=== PATIENT | female | born 1985 | race Caucasian/White ===

== ENCOUNTER 2016-06-18 07:22 | Emergency (ER) ==
[2016-06-18 07:22] VITALS: BMI 14.6
[2016-06-18 07:27] VITALS: BP 103/67; TEMP 98.2
[2016-06-18 08:00] LABS: BASOPHILS % (AUTO) 0.5 % (0.0-3.0); HEMOGLOBIN 12.8 g/dl (12.0-16.0); IMMATURE GRANULOCYTE % (AUTO) 0.5 % (0.0-5.0); LYMPHOCYTES # (AUTO) 0.4 K/uL (0.60-3.4); LYMPHOCYTES % (AUTO) 9.7 (10.0-50.0); MEAN CORPUSCULAR HGB CONC 33.7 (31.8-35.4); MEAN CORPUSCULAR VOLUME 89.2 fl (81.0-99.0); MONOCYTES # (AUTO) 0.4 K/uL (0.4-2.0); MONOCYTES % (AUTO) 10.7 (0-10); NEUTROPHILS # (AUTO) 3.2 K/ul (2.0-6.9); NEUTROPHILS % (AUTO) 77.6; PLATELET COUNT 147 10^3/uL (140-440); RED BLOOD COUNT 4.26 10^6/ul (4.20-5.40); WHITE BLOOD COUNT 4.12 K/ul (4.6-10.2)
[2016-06-18 08:07] LABS: BILIRUBIN,URINE Negative (NEGATIVE); KETONES,URINE Negative (NEGATIVE); LEUKOCYTE ESTERASE ,URINE 1+ (NEGATIVE); NITRITE,URINE Negative (NEGATIVE); PROTEIN,URINE Trace (NEGATIVE); URINE, BLOOD 2+ (NEGATIVE)
[2016-06-18 08:10] LABS: ADD URINE MICROSCOPIC YES; BACTERIA,URINE 1+ (NOT PRESENT)
[2016-06-18 08:11] LABS: URINE PREGNANCY INTERNAL QC INTERNAL QC VALID
[2016-06-18 08:20] LABS: FLU INTERNAL QC INTERNAL QC VALID; RAPID FLU A NEGATIVE (NEGATIVE); RAPID FLU B NEGATIVE (NEGATIVE)
[2016-06-18 08:21] LABS: ALBUMIN/GLOBULIN RATIO 1.67; ANION GAP 12.6; BILIRUBIN,TOTAL 0.71 mg/dL (0.00-1.20); BUN/CREATININE RATIO 10.81; CALCIUM 8.9 mg/dL (8.2-10.2); CREATININE 0.74 mg/dL (0.60-1.30); POTASSIUM 3.6 mmol/L (3.5-5.10); TOTAL PROTEIN 6.4 g/dL (6.4-8.2)
[2016-06-18] MEDS ORDERED: ROCEPHIN IM STA (08:36)
[2016-06-18] MEDS ORDERED: LIDOCAINE 1 % AMP 5 ML (SUTURES) IM STA (08:36)
--- NOTE | 2016-06-18 08:44 | DI ---
EXAM: Chest two view, frontal and lateral views. HISTORY: Cough. COMPARISON: 03/15/2015. FINDINGS: The heart size is normal. There is no pulmonary vascular congestion. The lungs are dylan r. No pleural effusion or pneumothorax is seen. No acute osseous abnormality identified. Since prior study, there has been no significant interval change. IMPRESSION: No acute cardiopulmonary process.
--- NOTE | 2016-06-18 08:47 | CT ---
EXAM: CT Abdomen without contrast. CT Pelvis without contrast. HISTORY: Generalized abdominal pain. Vomiting. COMPARISON: 05/18/2015. Ultrasound 02/03/2016. TECHNIQUE: Multiple axial images of the abdomen and pelvis were obtained without intravenous contra st. Images were reformatted in the coronal plane. FINDINGS: Please note that evaluation of the abdominal and pelvic structures is limited due to lack of intravenous contrast. The lung bases are clear. No acute osseous abnormality identified. The liver, gallbladder, pancreas, spleen, and adrenal glands demonstrate normal contour. Low densit y hepatic lesion in the right lobe on axial image 19 is stable, most likely a hemangioma based on pr ior ultrasound. No calcified renal stones, hydronephrosis or perinephric inflammation identified. The bowel is normal in course and caliber without evidence for obstruction or inflammatory process. The appendix is normal. Uterus demonstrates normal contour. Urinary bladder is not well distended . Phleboliths in the pelvis. A trace amount of free pelvic fluid noted. No free air identified. IMPRESSION: No acute abnormality within the abdomen or pelvis.
--- NOTE | 2016-06-18 09:28 | ED.PDOC ---
General ED Provider: Dr. SCOTTY CHIANG Chief Complaint: Nausea/Vomiting Stated Complaint: flu like symptoms Time Seen by Physician: 07:30 (seen with staff ) Mode of Arrival: Walk-In Information Source: Patient Exam Limitations: No limitations Nursing and Triage Documentation Reviewed and Agree: Yes Respiratory Complaint Exam - Respiratory Complaint/Exam Onset/Duration: 2 days Symptoms Are: Still present Timing: Intermittent Initial Severity: Mild Current Severity: Mild Location: Throat, Chest Character: Reports: Non-productive cough Aggravating: Reports: None Alleviating: Reports: Spontaneous resolution Associated Signs and Symptoms: Reports: Fever, Chills, URI, Nasal congestion History of Healthcare-Acquired Pneumonia: No Related Surgical History: Reports: None Pulmonary Embolism Risk Factors: None Cardiac Risk Factors: Reports: None Pseudomonas Risk Factors: Reports: None Tuberculosis Risk Factors: Reports: None Status Asthmaticus Risk Factors: Reports: None Home Oxygen Use: No Recent Stress Test: No Recent Echo/LV Function: No Current Antibiotic Use: No Current Asthma Medication Use: No Respiratory Distress: None Inadequate Respiratory Effort: No Dysphagia Present: No Stridor Present: No JVD Present: No Retractions: Not Present Diminished Breath Sounds: No Sinus Tenderness: None Grunting Respirations: No Kussmaul Respirations: No Differential Diagnoses: Pneumonia, Bronchitis, URI, Influenza, Lower Resp. Infection Review of Systems - Review Of Systems Constitutional: Reports: Chills, Fever, Malaise, Weakness Eyes: Reports: No symptoms Ears, Nose, Mouth, Throat: Reports: No symptoms Respiratory: Reports: Cough Cardiac: Reports: Chest pain GI: Reports: Abdominal pain, Nausea, Vomiting : Reports: No symptoms Musculoskeletal: Reports: No symptoms Skin: Reports: No symptoms Neurological: Reports: Headache Endocrine: Reports: No symptoms Hematologic/Lymphatic: Reports: No symptoms All Other Systems: Reviewed and Negative Past Medical History - Past Medical History Previously Healthy: Yes Endocrine: Reports: None Cardiovascular: Reports: None Respiratory: Reports: None Hematological: Reports: None Gastrointestinal: Reports: Other (ulcerative colitis) Genitourinary: Reports: None Neuro/Psych: Reports: None Musculoskeletal: Reports: None Cancer: Reports: None Last Menstrual Period: last week - Surgical History General Surgical History: Reports: Unknown - Family History Family History: Reports: Unknown - Social History Smoking Status: Former smoker Hx Substance Use: No Alcohol Screening: Occasionally Physical Exam - Physical Exam Appearance: Well-appearing, No pain distress, Well-nourished Eyes: AMANDA, EOMI, Conjunctiva clear ENT: Ears normal, Nose normal, Oropharynx normal Respiratory: Airway patent, Breath sounds clear, Breath sounds equal, Respirations nonlabored Cardiovascular: RRR, Pulses normal, No rub, No murmur GI/: Soft, Nontender, No masses, Bowel sounds normal, No Organomegaly Musculoskeletal: Normal strength, ROM intact, No edema, No calf tenderness Skin: Warm, Dry, Normal color Neurological: Sensation intact, Motor intact, Reflexes intact, Cranial nerves intact, Alert, Oriented Psychiatric: Affect appropriate, Mood appropriate Interpretation - Radiology Interpretation Radiology Interpretation By: Radiologist Radiology Results: No acute changes Re-Evaluation - Re-Evaluation Time of Re-Evaluation: 09:00 Status: Improved Vital Signs Stable: Yes Pain Level: 0 Appearance: NAD Lungs: Clear Skin: Warm and Dry Neuro: Alert and Oriented X3 CV: RRR Critical Care Note - Critical Care Note Total Time (mins): 0 Course - Course Hematology/Chemistry: 06/18/16 07:57 06/18/16 07:57 Orders, Labs, Meds: Lab Review 06/18/16 06/18/16 07:45 07:57 WBC 4.12 L RBC 4.26 Hgb 12.8 Hct 38.0 MCV 89.2 MCH 30.0 MCHC 33.7 RDW Coeff of Tj 11.8 Plt Count 147 Immature Gran % (Auto) 0.5 Neut % (Auto) 77.6 Lymph % (Auto) 9.7 L [place] % (Auto) 10.7 H Eos % (Auto) 1.0 Baso % (Auto) 0.5 Immature Gran # (Auto) 0.0 Neut # 3.2 Lymph # 0.4 L [place] # 0.4 Eos # 0.0 Baso # 0.0 Sodium 137 Potassium 3.6 Chloride 102 Carbon Dioxide 26 Anion Gap 12.6 BUN 8 Creatinine 0.74 Estimated GFR (MDRD) 90.00 BUN/Creatinine Ratio 10.81 Glucose 111 H Lactic Acid 7.4 Calcium 8.9 Total Bilirubin 0.71 AST 16 ALT 16 Alkaline Phosphatase 37 L Total Protein 6.4 Albumin 4.0 Globulin 2.4 Albumin/Globulin Ratio 1.67 Amylase 50 Lipase 15 Urine Color Yellow Urine Clarity Clear Urine pH 7.0 Ur Specific [place] 1.020 Urine Protein Trace Urine Glucose (UA) Negative Urine Ketones Negative Urine Blood 2+ Urine Nitrite Negative Urine Bilirubin Negative Urine Urobilinogen 1.0 Ur Leukocyte Esterase 1+ Urine Microscopic RBC 2-5 Urine Microscopic WBC 5-10 Ur Squamous Epith Cells 0-2 Urine Bacteria 1+ Urine Test Negative Influenza A (Rapid) Negative Influenza B (Rapid) Negative Orders Category Date Time Status AMYLASE Stat LAB 06/18/16 07:40 Ordered BLOOD CULTURE Stat LAB 06/18/16 07:44 Ordered CBC W/ AUTO DIFF Stat LAB 06/18/16 07:40 Ordered COMPREHENSIVE METABOLIC PANEL Stat LAB 06/18/16 07:40 Ordered LACTIC ACID Stat LAB 06/18/16 07:44 Ordered LIPASE Stat LAB 06/18/16 07:40 Ordered RAPID FLU A/B Stat LAB 06/18/16 07:41 Uncollected STREP SCREEN Stat LAB 06/18/16 07:41 Uncollected URINALYSIS C & S IF INDICATED Stat LAB 06/18/16 07:40 Uncollected URINE CULTURE Stat LAB 06/18/16 07:45 Received URINE Stat LAB 06/18/16 07:43 Uncollected Ceftriaxone Sodium [Rocephin] MEDS 06/18/16 08:36 Stat 1 gm IM ONCE STA Lidocaine HCl/Pf [Lidocaine 1 % Amp 5 ml (Sutures)] MEDS 06/18/16 08:36 Stat 2.1 ml IM ONCE STA CHEST, 2 VIEWS PA & LAT Stat RADS 06/18/16 07:[address] ABDOMEN/PELVIS WO CONTRAST Stat RADS 06/18/16 07:41 Ordered Medications Discontinued Medications Generic Name Dose Route Start Last Admin Trade Name Freq PRN Reason Stop Dose Admin Ceftriaxone Sodium 1 gm 06/18/16 08:36 06/18/16 08:48 Rocephin IM 06/18/16 08:37 1 gm ONCE STA Administration Lidocaine HCl 2.1 ml 06/18/16 08:36 06/18/16 08:50 Lidocaine 1 % Amp 5 Ml (Sutures) IM 06/18/16 08:37 2.1 ml ONCE STA Administration Vital Signs: Temp Pulse Resp BP Pulse Ox 06/18/16 07:23 98.2 F 93 H 20 103/67 98 Departure - Departure Time of Disposition: 09:28 Disposition: HOME SELF-CARE Discharge Problem: Nausea, Vomiting, Viral syndrome, Bronchitis, UTI (urinary tract infection) Instructions: Urinary Tract Infection in Women (ED), Viral Syndrome (ED) Condition: Good Pt referred to PMD for follow-up: No Additional Instructions: Please call your Family Physician as soon as possible to schedule a follow-up appointment. Prescriptions: Sulfamethoxazole/Trimethoprim [Bactrim Ds 800/160 mg] 1 tab PO Q12HR #10 tablet Allergies/Adverse Reactions: Allergies hydrocodone bitartrate [From Lortab] Adverse Reaction (Verified 06/18/16 07:30) Home Medications: Ambulatory Orders Sulfamethoxazole/Trimethoprim [Bactrim Ds 800/160 mg] 1 tab PO Q12HR #10 tablet 06/18/16
== END 2016-06-18 09:35 | disposition home or self-care (01) ==
LOC: ED 07:22
DX: J40 Bronchitis, not specified as acute or chronic (principal); B34.9 Viral infection, unspecified; N39.0 Urinary tract infection, site not specified; R11.2 Nausea with vomiting, unspecified
CPT/HCPCS: 36415; 80053; 81001; 81025; 82150; 83605; 83690; 85025; 87040; 87086; 87804; 96372; 99283

== ENCOUNTER 2016-11-05 09:53 | Outpatient (CLI) ==
--- NOTE | 2016-11-05 11:09 | CT ---
EXAM: CT Abdomen without contrast. CT Pelvis without contrast. HISTORY: Right lower quadrant pain. Intermittent nausea and vomiting. Liver disease. COMPARISON: 06/18/2016. TECHNIQUE: Multiple axial images of the abdomen and pelvis were obtained without intravenous contra st. Images were reformatted in the coronal plane. FINDINGS: Please note that evaluation of the abdominal and pelvic structures is limited due to lack of intravenous contrast. The lung bases are clear. No acute osseous abnormality identified. The liver, gallbladder, pancreas, spleen, adrenal glands, and kidneys are unremarkable. There is mild fluid distension of a few distal small bowel loops in the right lower quadrant/right p davy without wall thickening or adjacent inflammation. The appendix is normal. Uterus demonstrate s normal contour. Urinary bladder is unremarkable. Phleboliths noted in the pelvis. There may be a trace amount of free pelvic fluid. No free air identified IMPRESSION: Suspect mild distal enteritis.
--- NOTE | 2016-11-05 11:19 | DI ---
Exam: Right foot three-view HISTORY: Right foot pain Findings / impression: No acute bony or articular abnormality. Questionable left of segmentation of the talus and calcaneus as viewed on the lateral radiograph. A CT could be performed if this is th e site of pain. No abnormalities otherwise.
== END 2016-11-05 09:54 | disposition home or self-care (01) ==
LOC: RAD 09:53
PROVIDERS: ATTEND Nurse Practitioner Family
DX: K76.89 Other specified diseases of liver (principal); R10.9 Unspecified abdominal pain; M79.671 Pain in right foot; S99.921A Unspecified injury of right foot, initial encounter

== ENCOUNTER 2016-11-07 12:45 | Outpatient (CLI) ==
--- NOTE | 2016-11-07 13:22 | CT ---
EXAM: CT right foot without contrast HISTORY: Initial presentation for right foot trauma. Pain on the lateral aspect of the foot COMPARISON: Radiograph 11/05/2016 TECHNIQUE: Multiple axial images of the right foot were obtained without intravenous contrast. Brianda ges were reformatted in the sagittal and coronal planes FINDINGS: Bone mineralization is normal. No fracture or dislocation identified. Joint spaces are maintained. Soft tissues are unremarkable. IMPRESSION: No fracture or dislocation.
== END 2016-11-07 12:46 | disposition home or self-care (01) ==
LOC: RAD 12:45
PROVIDERS: ATTEND Nurse Practitioner Family
DX: S99.921A Unspecified injury of right foot, initial encounter (principal); M79.671 Pain in right foot

== ENCOUNTER 2016-11-27 11:07 | Emergency (ER) ==
[2016-11-27 11:20] VITALS: BP 102/65; TEMP 99.1; BMI 14.8
[2016-11-27 11:43] LABS: BILIRUBIN,URINE Negative (NEGATIVE); KETONES,URINE Negative (NEGATIVE); LEUKOCYTE ESTERASE ,URINE 1+ (NEGATIVE); NITRITE,URINE Negative (NEGATIVE); PH,URINE 7.5 (5-9); PROTEIN,URINE Negative (NEGATIVE); URINE, BLOOD Trace-intact (NEGATIVE)
[2016-11-27 11:50] LABS: ADD URINE MICROSCOPIC YES
[2016-11-27 12:03] LABS: BASOPHILS % (AUTO) 0.2 % (0.0-3.0); EOSINOPHILS # (AUTO) 0.1 K/ul (0.0-0.7); EOSINOPHILS % (AUTO) 1.9 % (0.0-7.0); HEMATOCRIT 38.5 % (37.0-47.0); HEMOGLOBIN 13.1 g/dl (12.0-16.0); IMMATURE GRANULOCYTE % (AUTO) 0.2 % (0.0-5.0); LYMPHOCYTES % (AUTO) 23.8 (10.0-50.0); MEAN CORPUSCULAR HEMOGLOBIN 30.3 pg (27.0-31.0); MEAN CORPUSCULAR VOLUME 89.1 fl (81.0-99.0); MONOCYTES # (AUTO) 0.2 K/uL (0.4-2.0); MONOCYTES % (AUTO) 5.8 (0-10); NEUTROPHILS # (AUTO) 2.8 K/ul (2.0-6.9); NEUTROPHILS % (AUTO) 68.1; PLATELET COUNT 131 10^3/uL (140-440); RED BLOOD COUNT 4.32 10^6/ul (4.20-5.40); WHITE BLOOD COUNT 4.12 K/ul (4.6-10.2)
[2016-11-27 12:17] LABS: SERUM PREGNANCY INTERNAL QC INTERNAL QC VALID
[2016-11-27 12:25] LABS: ALBUMIN/GLOBULIN RATIO 1.6; ANION GAP 13.2; BILIRUBIN,TOTAL 0.8 mg/dL (0.00-1.20); CREATININE 0.75 mg/dL (0.60-1.30); POTASSIUM 3.2 mmol/L (3.5-5.10); TOTAL PROTEIN 6.5 g/dL (6.4-8.2)
--- NOTE | 2016-11-27 12:53 | CT ---
EXAM: CT ABDOMEN AND PELVIS HISTORY: Abdominal pain. Nausea and vomiting. TECHNIQUE: CT abdomen and pelvis without intravenous contrast. Images were reconstructed using 3 m m section thickness. Reformations were prepared. COMPARISON: 11/05/2016 FINDINGS: Liver and spleen are grossly unremarkable within limits of this unenhanced exam. Gallbladder, pancr eas and adrenal glands are within normal limits. Prominent left renal pelvis similar to that previo usly seen may represent normal variant extrarenal pelvic architecture. Less likely chronic partial ureteral pelvic junction obstruction. No calculi are identified within the kidneys or the ureters. Normal abdominal aorta. No definite gastric pathology. A good portion of the appendix is identified and these portions appe ar normal. A few loops of small bowel have mild air-fluid levels and fold thickening. Colon caliber is unremarkable. Uterus and urinary bladder appear normal. There is trace pelvic ascites, possibly physiologic. No inflammatory infiltration of the abdominal fat. Ventral abdominal wall is intact without herniation. Bones appear appropriate for age. Lung bases are clear. There is no pneumoperitoneum. IMPRESSION: 1. Mild small bowel fold thickening with some of the lower small bowel having subtle air fluid leve ls. Consider ileus and / or enteritis. Visualized appendix appears normal. 2. Trace pelvic ascites, possibly physiologic. No inflammatory infiltration of the abdominal fat. 3. Prominent left renal pelvis similar to that previously seen may represent normal variant extrare nal pelvic architecture. Less likely chronic partial ureteral pelvic junction obstruction. No calc tisha are identified within the kidneys or the ureters.
--- NOTE | 2016-11-27 13:10 | ED.PDOC ---
General ED Provider: Dr. SCOTTY CHIANG Chief Complaint: Nausea/Vomiting Stated Complaint: ABDOMINAL PAIN Time Seen by Physician: 11:12 Mode of Arrival: Walk-In Information Source: Patient Exam Limitations: No limitations [facility] Nursing and Triage Documentation Reviewed and Agree: Yes GI Complaint Exam - Abdominal Pain Complaint/Exam Onset: Gradual Duration: CHRONIC VOMITEDX 1 Symptoms Are: Still present Timing: Constant Initial Severity: Mild Current Severity: Mild Location of Pain: Diffuse Character: Reports: Dull Aggravating: Reports: None Alleviating: Reports: None Associated Signs and Symptoms: Denies: Diaphoresis, Fever, Cough, Chest pain, Dizziness, Back pain, Constipation, Blood in stool, Dysuria, Urinary frequency, Decreased urine output, Decreased appetite, Vaginal bleeding, Vaginal discharge , Nausea, Vomiting, Diarrhea, Sore throat, Decreased activity Related History: Reports: Similar episode AAA Risk Factors: Reports: None Cardiac Risk Factors: Reports: None Ectopic Risk Factors: Reports: None Ovarian Torsion Risk Factors: Reports: None Surgical Obstruction Risk Factors: Reports: None Related Surgical History: Reports: None Patient Rh Status: Unknown Abdominal Findings: Present: None Differential Diagnoses: Appendicitis, Bowel Obstruction, Constipation, Diverticulitis, Gastroenteritis, Pancreatitis, UTI Review of Systems - Review Of Systems Constitutional: Reports: Malaise Eyes: Reports: No symptoms Ears, Nose, Mouth, Throat: Reports: No symptoms Respiratory: Reports: No symptoms Cardiac: Reports: No symptoms GI: Reports: Abdominal pain, Nausea, Vomiting : Reports: No symptoms Musculoskeletal: Reports: No symptoms Skin: Reports: No symptoms Neurological: Reports: No symptoms Endocrine: Reports: No symptoms Hematologic/Lymphatic: Reports: No symptoms All Other Systems: Reviewed and Negative Past Medical History - Past Medical History Previously Healthy: Yes Endocrine: Reports: None Cardiovascular: Reports: None Respiratory: Reports: None Hematological: Reports: None Gastrointestinal: Reports: Other (ulcerative colitis) Genitourinary: Reports: None Neuro/Psych: Reports: None Musculoskeletal: Reports: None Cancer: Reports: None Last Menstrual Period: nov 15 - Surgical History General Surgical History: Reports: Unknown - Family History Family History: Reports: Unknown - Social History Smoking Status: Former smoker Hx Substance Use: No Alcohol Screening: Occasionally Physical Exam - Physical Exam Appearance: Well-appearing, No pain distress, Well-nourished Eyes: AMANDA, EOMI, Conjunctiva clear ENT: Ears normal, Nose normal, Oropharynx normal Respiratory: Airway patent, Breath sounds clear, Breath sounds equal, Respirations nonlabored Cardiovascular: RRR, Pulses normal, No rub, No murmur GI/: Soft, Nontender, No masses, Bowel sounds normal, No Organomegaly Musculoskeletal: Normal strength, ROM intact, No edema, No calf tenderness Skin: Warm, Dry, Normal color Neurological: Sensation intact, Motor intact, Reflexes intact, Cranial nerves intact, Alert, Oriented Psychiatric: Affect appropriate, Mood appropriate Interpretation - Radiology Interpretation Radiology Interpretation By: Radiologist Radiology Results: No acute changes Physician Notification - Case Discussed Physician Notified: EMILY NERI Time of Notification: 12:17 (MAY GO HOME IF CMP WNL) Critical Care Note - Critical Care Note Total Time (mins): 0 Course - Course Hematology/Chemistry: 11/27/16 11:58 11/27/16 11:58 Orders, Labs, Meds: Lab Review 11/27/16 11/27/16 11:35 11:58 WBC 4.12 L RBC 4.32 Hgb 13.1 Hct 38.5 MCV 89.1 MCH 30.3 MCHC 34.0 RDW Coeff of Tj 11.9 Plt Count 131 L Immature Gran % (Auto) 0.2 Neut % (Auto) 68.1 Lymph % (Auto) 23.8 [place] % (Auto) 5.8 Eos % (Auto) 1.9 Baso % (Auto) 0.2 Immature Gran # (Auto) 0.0 Neut # 2.8 Lymph # 1.0 [place] # 0.2 L Eos # 0.1 Baso # 0.0 Sodium 142 Potassium 3.2 L Chloride 103 Carbon Dioxide 29 Anion Gap 13.2 BUN 6 L Creatinine 0.75 Estimated GFR (MDRD) 89.00 BUN/Creatinine Ratio 8.00 Glucose 100 Calcium 9.0 Total Bilirubin 0.80 AST 14 L ALT 11 L Alkaline Phosphatase 31 L Total Protein 6.5 Albumin 4.0 Globulin 2.5 Albumin/Globulin Ratio 1.60 Amylase 62 Lipase 15 Serum , Qual Negative Urine Color Yellow Urine Clarity Clear Urine pH 7.5 Ur Specific [place] 1.020 Urine Protein Negative Urine Glucose (UA) Negative Urine Ketones Negative Urine Blood Trace-intact Urine Nitrite Negative Urine Bilirubin Negative Urine Urobilinogen 0.2 Ur Leukocyte Esterase 1+ Urine Microscopic RBC 5-10 Urine Microscopic WBC 2-5 Ur Squamous Epith Cells 10-20 Orders Category Date Time Status AMYLASE Stat LAB 11/27/16 11:58 Completed CBC W/ AUTO DIFF Stat LAB 11/27/16 11:58 Completed COMPREHENSIVE METABOLIC PANEL Stat LAB 11/27/16 11:58 Completed LIPASE Stat LAB 11/27/16 11:58 Completed SERUM Stat LAB 11/27/16 11:58 Completed URINALYSIS C & S IF INDICATED Stat LAB 11/27/16 11:[address] ABDOMEN/PELVIS WO CONTRAST Stat RADS 11/27/16 11:30 Completed Vital Signs: Temp Pulse Resp BP Pulse Ox 11/27/16 11:07 99.1 F 66 20 102/65 98 Departure - Departure Time of Disposition: 13:10 (SEEN AT D/C WITH ALONZO FROM LAB . CT REPORT AND MILD HYPOKALEMIA DISCUSSED. PMD ASLO SAW PT IN THE ED STATED IF CHEMISTRY IS WNL PT MAY GO HOME ) Disposition: HOME SELF-CARE Discharge Problem: Nausea, Vomiting Abdominal pain Qualifiers: Abdominal location: generalized Qualifier Code: (R10.84) Generalized abdominal pain Instructions: Abdominal Pain (ED) Condition: Good Pt referred to PMD for follow-up: Yes Additional Instructions: Please call your Family Physician as soon as possible to schedule a follow-up appointment. Allergies/Adverse Reactions: Allergies hydrocodone bitartrate [From Lortab] Adverse Reaction (Verified 11/27/16 11:16) Home Medications: Ambulatory Orders 1 [No Reported Medications] 11/27/16 Disposition Discussed With: Patient
== END 2016-11-27 13:30 | disposition home or self-care (01) ==
LOC: ED 11:07
DX: R11.2 Nausea with vomiting, unspecified (principal); R10.84 Generalized abdominal pain; E87.6 Hypokalemia
CPT/HCPCS: 36415; 80053; 81001; 82150; 83690; 84703; 85025; 99283

== ENCOUNTER 2017-05-17 09:23 | Observation (INO) ==
--- NOTE | 2017-05-17 11:13 | ED.PDOC ---
General ED Provider: Dr. SCOTTY CHIANG Chief Complaint: Shortness of Air Stated Complaint: CHEST PAIN Time Seen by Physician: 09:27 (SEN WITH ENTIRE STAFF ) Mode of Arrival: Walk-In Information Source: Patient Exam Limitations: No limitations Nursing and Triage Documentation Reviewed and Agree: Yes Reviewed sepsis parameters & appropriate labs ordered?: Yes System Inflammatory Response Syndrome: Not Applicable Sepsis Protocol: For patient's 13 years and over: Temp is 96.8 and below OR 101 and greater Pulse >90 BPM Resp >20/minute Acutely Altered Mental Status Are patient's symptoms suggestive of a new infection, such as: -Pneumonia -Skin, Soft Tissue -Endocarditis -UTI -Bone, Joint Infection -Implantable Device -Acute Abdominal Infection -Wound Infection -Meningitis -Blood Stream Catheter Infection -Unknown System Inflammatory Response Syndrome: Not Applicable Cardiovascular Complaint Exam - Chest Pain Complaint/Exam Onset: Gradual Duration: 1 DAY Symptoms Are: Still present Timing: Intermittent Initial Severity: Mild Current Severity: Mild Location: Reports: Discrete, Midsternal Pain Radiates: Reports: None Character: Reports: Aching Aggravating: Reports: None Alleviating: Reports: None Associated Signs and Symptoms: Reports: Cough. Denies: Diaphoresis, Nausea, Vomiting, Fever, Palpitations, Hemoptysis, Back pain, Abdominal pain, Dizziness , Short of air, Calf pain, Calf swelling Related Surgical History: Reports: None History of Healthcare-Acquired Pneumonia: Reports: No Review of Systems - Review Of Systems Constitutional: Reports: No symptoms Eyes: Reports: No symptoms Ears, Nose, Mouth, Throat: Reports: No symptoms Respiratory: Reports: No symptoms Cardiac: Reports: Chest pain GI: Reports: No symptoms : Reports: No symptoms Musculoskeletal: Reports: No symptoms Skin: Reports: No symptoms Neurological: Reports: No symptoms Endocrine: Reports: No symptoms Hematologic/Lymphatic: Reports: No symptoms All Other Systems: Reviewed and Negative Past Medical History - Past Medical History Previously Healthy: Yes Endocrine: Reports: None Cardiovascular: Reports: None Respiratory: Reports: None Hematological: Reports: None Gastrointestinal: Reports: Other (ulcerative colitis) Genitourinary: Reports: None Neuro/Psych: Reports: None Musculoskeletal: Reports: None Cancer: Reports: None Last Menstrual Period: today - Surgical History General Surgical History: Reports: Unknown - Family History Family History: Reports: Unknown - Social History Smoking Status: Former smoker Hx Substance Use: No Alcohol Screening: Occasionally Physical Exam - Physical Exam Appearance: Well-appearing, No pain distress, Well-nourished Eyes: AMANDA, EOMI, Conjunctiva clear ENT: Ears normal, Nose normal, Oropharynx normal Respiratory: Airway patent, Breath sounds clear, Breath sounds equal, Respirations nonlabored Cardiovascular: RRR, Pulses normal, No rub, No murmur GI/: Soft, Nontender, No masses, Bowel sounds normal, No Organomegaly Musculoskeletal: Normal strength, ROM intact, No edema, No calf tenderness Skin: Warm, Dry, Normal color Neurological: Sensation intact, Motor intact, Reflexes intact, Cranial nerves intact, Alert, Oriented Psychiatric: Affect appropriate, Mood appropriate Interpretation - Radiology Interpretation Radiology Interpretation By: Radiologist Radiology Results: No acute changes - [place] Melter Rate: Normal Rhythm: Sinus Ectopy: None - EKG Interpretation Rate: Normal Rhythm: Sinus Physician Notification - Case Discussed Physician Notified: EMILY Time of Notification: 11:13 Critical Care Note - Critical Care Note Total Time (mins): 0 Course - Course Hematology/Chemistry: 05/17/17 09:55 05/17/17 09:55 Orders, Labs, Meds: Lab Review 05/17/17 05/17/17 05/17/17 09:55 09:55 10:15 WBC 3.22 L RBC 4.46 Hgb 13.5 Hct 39.5 MCV 88.6 MCH 30.3 MCHC 34.2 RDW Coeff of Tj 11.9 Plt Count 118 L Immature Gran % (Auto) 0.3 Neut % (Auto) 62.1 Lymph % (Auto) 20.5 [place] % (Auto) 16.5 H Eos % (Auto) 0.3 Baso % (Auto) 0.3 Immature Gran # (Auto) 0.0 Neut # 2.0 Lymph # 0.7 [place] # 0.5 Eos # 0.0 Baso # 0.0 Sodium 137 Potassium 3.5 Chloride 99 Carbon Dioxide 26 Anion Gap 15.5 BUN 13 Creatinine 0.80 Estimated GFR (MDRD) 82.00 BUN/Creatinine Ratio 16.25 Glucose 85 Calcium 9.0 Total Bilirubin 0.7 AST 24 ALT 15 Alkaline Phosphatase 41 L Total Creatine Kinase 72 Troponin I < 0.0100 Total Protein 7.4 Albumin 4.1 Globulin 3.3 Albumin/Globulin Ratio 1.24 Urine Test Urine Opiates Screen Negative Ur Oxycodone Screen Negative Urine Methadone Screen Negative Ur Propoxyphene Screen Negative Ur Barbiturates Screen Negative U Tricyclic Antidepress Negative Ur Phencyclidine Scrn Negative Ur Amphetamine Screen Negative U Methamphetamines Scrn Positive U Benzodiazepines Scrn Negative Urine Cocaine Screen Negative U Cannabinoids Screen Positive 05/17/17 10:17 WBC RBC Hgb Hct MCV MCH MCHC RDW Coeff of Tj Plt Count Immature Gran % (Auto) Neut % (Auto) Lymph % (Auto) [place] % (Auto) Eos % (Auto) Baso % (Auto) Immature Gran # (Auto) Neut # Lymph # [place] # Eos # Baso # Sodium Potassium Chloride Carbon Dioxide Anion Gap BUN Creatinine Estimated GFR (MDRD) BUN/Creatinine Ratio Glucose Calcium Total Bilirubin AST ALT Alkaline Phosphatase Total Creatine Kinase Troponin I Total Protein Albumin Globulin Albumin/Globulin Ratio Urine Test Negative Urine Opiates Screen Ur Oxycodone Screen Urine Methadone Screen Ur Propoxyphene Screen Ur Barbiturates Screen U Tricyclic Antidepress Ur Phencyclidine Scrn Ur Amphetamine Screen U Methamphetamines Scrn U Benzodiazepines Scrn Urine Cocaine Screen U Cannabinoids Screen Orders Category Date Time Status EKG-(ED ONLY) Stat CARDIO 05/17/17 09:42 Completed CBC W/ AUTO DIFF Stat LAB 05/17/17 09:55 Completed COMPREHENSIVE METABOLIC PANEL Stat LAB 05/17/17 09:55 Completed CREATINE KINASE Stat LAB 05/17/17 09:55 Completed FLU A/B MOLECULAR Stat LAB 05/17/17 10:15 Received MOLECULAR GROUP A STREP Stat LAB 05/17/17 10:15 Received TROPONIN I Stat LAB 05/17/17 09:55 Completed URINE DRUG SCREEN (RAPID FOR ED) [DRUG SCREEN, URINE, LAB 05/17/17 10:15 Completed RAPID] Stat URINE Stat LAB 05/17/17 10:17 Completed CHEST, 2 VIEWS PA & LAT Stat RADS 05/17/17 09:38 Taken Vital Signs: Temp Pulse Resp BP Pulse Ox 05/17/17 09:24 97.5 F L 87 24 96/73 98 KAREEM Risk Score KAREEM Risk Score: Risk Score Odds of by 30D 0 0.1 (0.1-0.2) 1 0.3 (0.2-0.3) 2 0.4 (0.3-0.5) 3 0.7 (0.6-0.9) 4 1.2 (1.0-1.5) 5 2.2 (1.9-2.6) 6 3.0 (2.5-3.6) 7 4.8 (3.8-6.1) Departure - Departure Time of Disposition: 11:14 Disposition: PLACED OBSERVATION Discharge Problem: Chest pain Instructions: Angina (ED), Chest Pain (ED) Condition: Good Pt referred to PMD for follow-up: Yes IPMP verified?: Yes Additional Instructions: Please call your Family Physician as soon as possible to schedule a follow-up appointment. Allergies/Adverse Reactions: Allergies hydrocodone bitartrate [From Lortab] Adverse Reaction (Verified 05/17/17 09:29) Home Medications: Ambulatory Orders 1 [No Reported Medications] 11/27/16 Disposition Discussed With: Patient
[2017-05-17] MEDS ORDERED: SODIUM CHLORIDE 1,000 ML IV STA (11:14)
--- NOTE | 2017-05-17 11:17 | DI ---
EXAM: Two-view chest HISTORY: Cough COMPARISON: Two-view chest 06/18/2016 FINDINGS: The cardiomediastinal silhouette is normal. The lungs are clear bilaterally. No osseous abnormalities are identified. IMPRESSION: No evidence of active pulmonary disease
[2017-05-17 12:22] VITALS: BMI 14.6
[2017-05-17] MEDS ORDERED: TYLENOL PO PRN (13:59)
[2017-05-17] MEDS ORDERED: DECADRON 4 MG/ML SDV IVP STA (14:01)
[2017-05-17] MEDS: CARAFATE PO SCH ×2 (17:06→20:32)
[2017-05-17] MEDS ORDERED: ROCEPHIN ONE (18:03)
[2017-05-17] MEDS: ROCEPHIN 1 GM in SODIUM CHLORIDE 50 ML IV SCH (18:12)
[2017-05-17] MEDS: DUONEB NEB SCH (20:58)
[2017-05-18] MEDS: DUONEB NEB SCH ×2 (05:06→14:06)
[2017-05-18] MEDS: CARAFATE PO SCH ×2 (05:31→11:09)
[2017-05-18] MEDS: ROCEPHIN 1 GM in SODIUM CHLORIDE 50 ML IV SCH (08:53)
[2017-05-18 14:50] VITALS: BP 97/61; TEMP 97.7
--- NOTE | 2017-05-21 13:04 | HP ---
DATE OF SERVICE: 05/17/17 CHIEF COMPLAINT: Shortness of breath. HISTORY OF PRESENT ILLNESS: This is a 32-year-old female who came to the emergency room with shortness of breath, cough and congestion, difficulty swallowing food, throat pain, fever and chills. Temperature is 97.5. She was seen by Dr. York in the emergency room. White count is normal. BUN and creatinine normal. Toxicology screen positive for Meth. Serology negative. Chest x-ray negative. Also was having some chest pain. At that time, Dr. York from ER admitted the patient to observation for chest pain, rule out ACS. REVIEW OF SYSTEMS: CONSTITUTIONAL: Weakness, tiredness. Feverish feeling. No fever, no chills. HEENT: Normal. ENDOCRINE: No weight gain; no weight loss. CVS: No chest pain. No PND, no orthopnea. No shortness of breath. No PND, no orthopnea. RESPIRATORY: Cough and congestion. No hemoptysis. GI: No nausea, no vomiting. No abdominal pain. No melena. : No hematuria. No polyuria. MUSCULOSKELETAL: No joint swelling. PSYCHIATRIC: Not anxious. No depression. No suicidal thoughts. No homicidal thoughts. SKIN: Intact, no open lesions. PAST MEDICAL HISTORY: Hypertension History of migraine Asthmatic bronchitis Ulcerative colitis Anxiety Substance use PAST SURGICAL HISTORY: times two Tubal ligation PERSONAL HISTORY: Smoker; uses meth and marijuana sometimes. MEDICATIONS:(HOME) None ALLERGIES: HYDROCODONE PHYSICAL EXAMINATION: GENERAL: Ill-appearing lady lying in bed, not in any distress. V/S: BP 96/73, respiratory rate 24, heart rate 87, temperature 97.5, saturation 98. HEENT: Atraumatic, normocephalic. No scleral icterus. Pallor positive. Mucosa dry. NECK: Supple. No JVD, no bruit. No lymphadenopathy. No thyromegaly. HEART: S1, S2 normal. No murmur. No cyanosis or clubbing. No ascites. LUNGS: Basilar crackles. Mild expiratory wheeze. ABDOMEN: Soft, nontender. Bowel sounds are active. No CVA tenderness. No rigidity or guarding. EXTREMITIES: No pedal edema. No cyanosis or clubbing MUSCULOSKELETAL: Normal joints, no swelling. NEUROLOGIC: The patient is awake and alert. SKIN: Intact; no open lesions. LYMPHATIC: No lymph nodes palpable. LABS: Sodium 137, potassium 3.5, chloride 99, bicarb 26, BUN 13, creatinine 0.80. White count 3.22, hemoglobin 13.5, hematocrit 39.5, platelet count 118. ASSESSMENT: 1. UPPER RESPIRATORY INFECTION 2. BRONCHITIS 3. CHEST PAIN FROM PLEURISY 4. SUBSTANCE USE FROM METH PLAN: 1. Admit patient to Observation. 2. Breathing treatments, Solu-Medrol, Duonebs, IV fluids. 3. Will follow with the patient in daily rounds. TIME SPENT: MORE THAN 75 minutes MTDD
--- NOTE | 2017-05-21 13:33 | DS ---
DATE OF SERVICE: 05/18/17 FINAL DIAGNOSIS: 1. UPPER RESPIRATORY INFECTION 2. CHEST PAIN FROM SUBSTANCE USE (METH) 3. ANXIETY DISORDER 4. POSITIVE FOR METH 5. ULCERATIVE COLITIS NOT ON ANY MEDICATION 6. HISTORY OF MIGRAINES DISCHARGE INSTRUCTIONS: 1. Discharge home. 2. Followup appointment in 10 to 15 days. Call the office for appointment, [phone] MEDICATIONS AT DISCHARGE: None other than the new prescriptions NEW PRESCRIPTIONS: Keflex 500 mg twice a day for 5 days Prednisone 10 mg twice a day for 5 days DIET INSTRUCTIONS: Cardiac and healthy ACTIVITY: As much as tolerated SMOKING: Former smoker DISEASE SPECIFIC EDUCATION: Use of street drugs, risks discussed and patient verbalized understanding HOSPITAL COURSE: This is a 32-year-old who came to the emergency room with cough, congestion, and shortness of breath. She did complain of some chest pain. She was seen by Dr. York, admitted for upper respiratory infection and chest pain. The patient started having the chest pain after having some use of marijuana per patient and urine drug screen was positive for methamphetamine and marijuana. She told me that the person who gave her the marijuana told her that it is not meth, it was marijuana but meth was positive. She says that she did it for the first time and started feeling a funny feeling in the chest so came to the emergency room. With the given breathing treatments and steroids, she started feeling better. She did not have any problems by the next day. I explained about the use of street drugs and risks of those medications. She verbalized understanding. As the patient was pain free and steroids were helping with the breathing, the patient was discharged home on antbiotic Keflex and steroids. TIME SPENT: MORE THAN 65 MINUTES MTDD
== END 2017-05-18 15:15 | disposition home or self-care (01) ==
LOC: ED 09:23 → MEDSURG A 11:30
PROVIDERS: ADMIT Emergency Medicine; ATTEND Emergency Medicine
DX: J06.9 Acute upper respiratory infection, unspecified (principal); R07.9 Chest pain, unspecified; J20.9 Acute bronchitis, unspecified; F15.90 Other stimulant use, unspecified, uncomplicated; F12.90 Cannabis use, unspecified, uncomplicated; R06.02 Shortness of breath; K51.90 Ulcerative colitis, unspecified, without complications; F41.9 Anxiety disorder, unspecified; F17.210 Nicotine dependence, cigarettes, uncomplicated; Z86.69 Personal history of other diseases of the nervous system and sense organs
CPT/HCPCS: 36415; 80053; 80061; 80306; 81025; 82550; 84443; 84484; 85025; 87502; 87651; 93005; 93010; 94640; 99284

== ENCOUNTER 2017-06-03 13:04 | Outpatient (CLI) ==
--- NOTE | 2017-06-03 14:09 | CT ---
EXAM: CT ABDOMEN AND PELVIS HISTORY: Irritable bowel syndrome with diarrhea. Knot lower abdomen. TECHNIQUE: CT abdomen and pelvis without intravenous contrast. Images were reconstructed using 3 mm section thickness. Reformations were prepared. COMPARISON: 11/27/2016 FINDINGS: Diagnostic limitations exist without including contrast enhanced images. Paucity of intraperitoneal fat leads to difficulty clearly visualizing certain organs and abdominal compartments. No gross hepa tic or splenic lesions. Gallbladder was within normal limits. Pancreas and adrenal glands appear gr ossly normal. Redemonstration of mildly prominent left renal pelvis which is nonspecific. No nephro lithiasis is identified. The visualized ureters appear clear. There is no perinephric fat stranding . Normal abdominal aorta. Stomach is mildly distended with fluid and air. Normal appendix. No excessive fecal retention, fluid consistency stool or air-fluid levels. There is mild gaseous distension of most of the colon. Urin rolo bladder and uterus are within normal limits. No ascites. No ventral abdominal wall hernia. The bones appear normal. Lung bases are clear. No pneumoperitone um. There are a few nonspecific small bilateral inguinal lymph nodes one of which is located in the left inguinal region and what marked as the region of interest for palpable knot. This lymph node ap pears grossly normal in size. IMPRESSION: 1. Mild distension of the stomach with fluid and air, nonspecific. Mild distension of portions of t he colon with gas. No fluid consistency stool or evidence of active enterocolitis. No bowel obstruc tion or ascites. No free air. 2. There are a few nonspecific small bilateral inguinal lymph nodes one of which is located in the l eft inguinal region and what marked as the region of interest for palpable knot. This lymph node keo ears grossly normal in size.
== END 2017-06-03 13:05 | disposition home or self-care (01) ==
LOC: RAD 13:04
PROVIDERS: ATTEND Emergency Medicine
DX: K58.0 Irritable bowel syndrome with diarrhea (principal)

== ENCOUNTER 2017-06-04 12:44 | Outpatient (CLI) | END 2017-06-04 12:45 | disposition home or self-care (01) | LOC: CAR 12:44 | PROVIDERS: ATTEND Emergency Medicine | DX: R00.2 Palpitations (principal) | CPT/HCPCS: 93227 ==

== ENCOUNTER 2017-06-19 10:47 | Outpatient (CLI) ==
--- NOTE | 2017-06-19 13:32 | CT ---
EXAM: CT scan of the chest without contrast HISTORY: Shortness of breath TECHNIQUE: Imaging of the chest was performed without intravenous contrast. 5 mm thin axial images and coronal sagittal images were provided for interpretation. FINDINGS: Lungs are clear. Heart is normal size. No mediastinal masses are seen. No lytic or blast ic lesions are seen within the osseous structures. IMPRESSION: No acute abnormalities are seen within the thorax.
== END 2017-06-19 10:48 | disposition home or self-care (01) ==
LOC: RAD 10:47
PROVIDERS: ATTEND Emergency Medicine
DX: R06.02 Shortness of breath (principal)

== ENCOUNTER 2018-07-04 23:54 | Outpatient (CLI) ==
[2018-07-05 04:15] VITALS: BMI 14.8
== END 2018-07-04 23:58 | disposition critical access hospital (66) ==
LOC: AMBL 23:54
PROVIDERS: ATTEND Family Medicine
DX: R11.2 Nausea with vomiting, unspecified (principal); R19.7 Diarrhea, unspecified; R52 Pain, unspecified

== ENCOUNTER 2018-07-05 00:26 | Emergency (ER) | payer MEDICAID, OTHER ==
[2018-07-05] MEDS ORDERED: SODIUM CHLORIDE 1,000 ML IV STA (00:28)
--- NOTE | 2018-07-05 02:06 | CT ---
EXAM: CT abdomen pelvis without intravenous contrast 06/08/2018. Sagittal and coronal reformatted i mages obtained HISTORY: Abdominal pain COMPARISON: 06/03/2017 FINDINGS: The liver and gallbladder show no gross abnormality. Limited anatomic detail due to the l ack of intravenous contrast. The adrenal glands, kidneys and spleen show no acute abnormality. The pancreas is not well visualize d. There is suggestion mucosal thickening within fluid-filled small bowel. The appearance is suggestive of enteritis. This is poorly characterized due to the lack of intravenous contrast. The appendix a ppears within normal limits. Small quantity of free fluid within the pelvis. No gross abnormality o f the urinary bladder. No acute osseous abnormality. IMPRESSION: 1. There is suggestion of small bowel mucosal thickening. Small bowel appears fluid-filled. The ap pearance is suggestive of enteritis. These findings are not well characterized due to the lack of in travenous contrast. 2. No urinary or bowel obstruction. Normal appendix. 3. Small quantity of free fluid in the pelvis.
[2018-07-05] MEDS ORDERED: ATIVAN IVP STA (02:10)
--- NOTE | 2018-07-05 04:09 | ED.PDOC ---
General ED Provider: Dr. NICOLÁS EDWARDS-ER Chief Complaint: Nausea/Vomiting Stated Complaint: i vomited Time Seen by Physician: 04:07 Mode of Arrival: Ambulance Information Source: Patient Exam Limitations: No limitations Primary Care Provider: MELISSA SALTER Nursing and Triage Documentation Reviewed and Agree: Yes Does patient meet sepsis criteria?: No System Inflammatory Response Syndrome: Not Applicable Sepsis Protocol: For patient's 13 years and over: Temp is 96.8 and below OR 101 and greater Pulse >90 BPM Resp >20/minute Acutely Altered Mental Status Are patient's symptoms suggestive of a new infection, such as: -Pneumonia -Skin, Soft Tissue -Endocarditis -UTI -Bone, Joint Infection -Implantable Device -Acute Abdominal Infection -Wound Infection -Meningitis -Blood Stream Catheter Infection -Unknown GI Complaint Exam - Vomiting/Diarrhea Complaint/Exam Onset/Duration: 1 hr Symptoms Are: Still present Initial Severity: Mild Current Severity: Mild Character of Vomiting: Reports: Non-bilious Aggravating: Reports: None Alleviating: Reports: None Associated Signs and Symptoms: Denies: Dizziness, Light-headedness, Melena, Hematemesis, Fever, Abdominal pain, Cramping Recent Positive Test: No Use of Oral Contraceptives: No Use of Depoprovera: No Compliant With Contraceptive Use: No Non-GI Risk Factors: Reports: None Surgical Obstruction Risk Factors: Reports: None [place] Respirations Present: No Differential Diagnoses: Viral Gastroenteritis Review of Systems - Review Of Systems Constitutional: Reports: No symptoms Eyes: Reports: No symptoms Ears, Nose, Mouth, Throat: Reports: No symptoms Respiratory: Reports: No symptoms Cardiac: Reports: No symptoms GI: Reports: Nausea, Vomiting : Reports: No symptoms Musculoskeletal: Reports: No symptoms Skin: Reports: No symptoms Neurological: Reports: No symptoms Endocrine: Reports: No symptoms Hematologic/Lymphatic: Reports: No symptoms All Other Systems: Reviewed and Negative Past Medical History - Past Medical History Previously Healthy: Yes Endocrine: Reports: None Cardiovascular: Reports: None Respiratory: Reports: None Hematological: Reports: None Gastrointestinal: Reports: Other (ulcerative colitis) Genitourinary: Reports: None Neuro/Psych: Reports: None Musculoskeletal: Reports: None Cancer: Reports: None - Surgical History General Surgical History: Reports: Unknown - Family History Family History: Reports: Unknown - Social History Smoking Status: Former smoker Hx Substance Use: Yes Alcohol Screening: Occasionally Physical Exam - Physical Exam Appearance: Well-appearing, No pain distress, Well-nourished Eyes: AMANDA, EOMI, Conjunctiva clear ENT: Ears normal, Nose normal, Oropharynx normal Neck: Supple Respiratory: Airway patent, Breath sounds clear, Breath sounds equal, Respirations nonlabored Cardiovascular: RRR, Pulses normal, No rub, No murmur GI/: Soft, Nontender, No masses, Bowel sounds normal, No Organomegaly Musculoskeletal: Normal strength, ROM intact, No edema, No calf tenderness Skin: Warm, Dry, Normal color Neurological: Sensation intact, Motor intact, Reflexes intact, Cranial nerves intact, Alert, Oriented Psychiatric: Affect appropriate, Mood appropriate Interpretation - Radiology Interpretation Radiology Interpretation By: Radiologist Radiology Results: Negative Exam Interpreted: CT Scan - EKG Interpretation Time of EKG #1: 04:09 Rate: Normal Rhythm: Sinus Ectopy: None [place]: NL ST Segment: Normal Interpretation: nsr Re-Evaluation - Re-Evaluation Time of Re-Evaluation: 04:09 Status: Improved Vital Signs Stable: Yes Pain Level: 0 Appearance: NAD Lungs: Clear Skin: Warm and Dry Neuro: Alert and Oriented X3 CV: RRR Critical Care Note - Critical Care Note Total Time (mins): 0 Course - Course Hematology/Chemistry: 07/05/18 00:49 07/05/18 00:49 Orders, Labs, Meds: Lab Review 07/05/18 07/05/18 07/05/18 00:34 00:43 00:43 WBC RBC Hgb Hct MCV MCH MCHC RDW Coeff of Tj Plt Count Immature Gran % (Auto) Neut % (Auto) Lymph % (Auto) [place] % (Auto) Eos % (Auto) Baso % (Auto) Immature Gran # (Auto) Neut # (Auto) Lymph # (Auto) [place] # (Auto) Eos # (Auto) Baso # (Auto) Sodium Potassium Chloride Carbon Dioxide Anion Gap BUN Creatinine Estimated GFR (MDRD) BUN/Creatinine Ratio Glucose Calcium Total Bilirubin AST ALT Alkaline Phosphatase Total Protein Albumin Globulin Albumin/Globulin Ratio Amylase Lipase Serum , Qual Urine Color Yellow Urine Clarity Slightly Urine pH 5.5 Ur Specific [place] >=1.030 Urine Protein 1+ Urine Glucose (UA) Negative Urine Ketones Negative Urine Blood 2+ Urine Nitrite Negative Urine Bilirubin 1+ Urine Urobilinogen 1.0 Ur Leukocyte Esterase 1+ Urine Microscopic RBC 10-20 Urine Microscopic WBC 5-10 Ur Squamous Epith Cells 5-10 Urine Bacteria Trace Urine Mucus 2+ Urine Opiates Screen Negative Ur Oxycodone Screen Negative Urine Methadone Screen Negative Ur Propoxyphene Screen Negative Ur Barbiturates Screen Negative U Tricyclic Antidepress Negative Ur Phencyclidine Scrn Negative Ur Amphetamine Screen Negative U Methamphetamines Scrn Negative U Benzodiazepines Scrn Negative Urine Cocaine Screen Positive U Cannabinoids Screen Positive Influ A Molecular Assay Negative by naat Influ B Molecular Assay Negative by naat 07/05/18 07/05/18 07/05/18 00:49 00:49 00:49 WBC 13.28 H RBC 5.03 Hgb 15.2 Hct 46.6 MCV 92.6 MCH 30.2 MCHC 32.6 RDW Coeff of Tj 11.9 Plt Count 191 Immature Gran % (Auto) 0.3 Neut % (Auto) 87.0 Lymph % (Auto) 7.7 L [place] % (Auto) 4.5 Eos % (Auto) 0.2 Baso % (Auto) 0.3 Immature Gran # (Auto) 0.0 Neut # (Auto) 11.6 H Lymph # (Auto) 1.0 [place] # (Auto) 0.6 Eos # (Auto) 0.0 Baso # (Auto) 0.0 Sodium 139.5 Potassium 3.91 Chloride 100.3 Carbon Dioxide 32.1 H Anion Gap 11.01 BUN 8.2 Creatinine 0.63 Estimated GFR (MDRD) 108.00 BUN/Creatinine Ratio 13.01 Glucose 114.1 H Calcium 8.72 Total Bilirubin 0.86 AST 22.6 ALT 16.4 Alkaline Phosphatase 36.7 L Total Protein 7.35 Albumin 4.85 Globulin 2.50 Albumin/Globulin Ratio 1.94 Amylase 75.0 Lipase 63.3 Serum , Qual Negative Urine Color Urine Clarity Urine pH Ur Specific [place] Urine Protein Urine Glucose (UA) Urine Ketones Urine Blood Urine Nitrite Urine Bilirubin Urine Urobilinogen Ur Leukocyte Esterase Urine Microscopic RBC Urine Microscopic WBC Ur Squamous Epith Cells Urine Bacteria Urine Mucus Urine Opiates Screen Ur Oxycodone Screen Urine Methadone Screen Ur Propoxyphene Screen Ur Barbiturates Screen U Tricyclic Antidepress Ur Phencyclidine Scrn Ur Amphetamine Screen U Methamphetamines Scrn U Benzodiazepines Scrn Urine Cocaine Screen U Cannabinoids Screen Influ A Molecular Assay Influ B Molecular Assay Orders Category Date Time Status EKG-(ED ONLY) Stat CARDIO 07/05/18 00:27 Completed IV [ED IV/MEDIPORT/POWERPORT] .ONCE EMERGENCY 07/05/18 00:27 Active AMYLASE Stat LAB 07/05/18 00:49 Completed CBC W/ AUTO DIFF Stat LAB 07/05/18 00:49 Completed COMPREHENSIVE METABOLIC PANEL Stat LAB 07/05/18 00:49 Completed FLU A/B MOLECULAR Stat LAB 07/05/18 00:34 Completed LIPASE Stat LAB 07/05/18 00:49 Completed MOLECULAR GROUP A STREP Stat LAB 07/05/18 00:34 Completed SERUM Stat LAB 07/05/18 00:49 Completed URINALYSIS C & S IF INDICATED Stat LAB 07/05/18 00:43 Completed URINE CULTURE Stat LAB 07/05/18 00:43 Received URINE DRUG SCREEN (RAPID FOR ED) [DRUG SCREEN, URINE, LAB 07/05/18 00:43 Completed RAPID] Stat 0.9 % Sodium Chloride [Saline Flush] MEDS 07/05/18 00:27 Ordered 1 syr IVF PRN PRN Lorazepam [Ativan] MEDS 07/05/18 02:10 Discontinued 0.5 mg IVP ONCE STA Sodium Chloride 0.9% [Sodium Chloride] 1,000 ml MEDS 07/05/18 00:[address] ABDOMEN/PELVIS WO CONTRAST Stat RADS 07/05/18 00:30 Completed Medications Generic Name Dose Route Start Last Admin Trade Name Freq PRN Reason Stop Dose Admin Sodium Chloride 1 syr 07/05/18 00:27 Saline Flush IVF PRN PRN To flush IV Discontinued Medications Generic Name Dose Route Start Last Admin Trade Name Freq PRN Reason Stop Dose Admin Sodium Chloride 1,000 mls @ 1,000 mls/hr 07/05/18 00:28 07/05/18 00:52 Sodium Chloride IV 07/05/18 01:27 1,000 mls/hr BOLUS STA Administration Lorazepam 0.5 mg 07/05/18 02:10 Ativan IVP 07/05/18 02:11 ONCE STA Departure - Departure Time of Disposition: 04:09 Disposition: HOME SELF-CARE Discharge Problem: Drug use Instructions: Acute Nausea and Vomiting (ED) Condition: Good Pt referred to PMD for follow-up: Yes IPMP verified?: No Additional Instructions: f/u with pcp Allergies/Adverse Reactions: Allergies hydrocodone bitartrate [From Lortab] Adverse Reaction (Verified 07/05/18 00:32) FINGERS NUMB Home Medications: Ambulatory Orders Ranitidine HCl [Acid Taker Off] 75 mg PO DIRECTED PRN 07/05/18 Disposition Discussed With: Patient, Family
[2018-07-05 04:15] VITALS: BP 87/53; TEMP 100.1; BMI 14.8
== END 2018-07-05 04:26 | disposition home or self-care (01) ==
LOC: ED 00:26
DX: F19.90 Other psychoactive substance use, unspecified, uncomplicated (principal); R11.2 Nausea with vomiting, unspecified
CPT/HCPCS: 36415; 80053; 80306; 81001; 82150; 83690; 84703; 85025; 87086; 87502; 87651; 93005; 93010; 96360; 99283

== ENCOUNTER 2022-08-30 19:33 | Observation (INO) ==
[2022-08-30] MEDS ORDERED: REGLAN IVP STA (19:50)
[2022-08-30] MEDS ORDERED: IMITREX PO STA (19:51)
--- NOTE | 2022-08-30 19:53 | ED.PDOC ---
General ED Provider: Dr. YOON SAN MD Chief Complaint: Headache Stated Complaint: headache, vomiting and chest pain Time Seen by Provider: 08/30/22 19:50 Information Source: Patient and Family Primary Care Provider: HANSA CA APRN Nursing and Triage Documentation Reviewed and Agree: Yes Does patient meet sepsis criteria?: No System Inflammatory Response Syndrome: Not Applicable Sepsis Protocol: For patient's 13 years and over: Temp is 96.8 and below OR 101 and greater Pulse >90 BPM Resp >20/minute Acutely Altered Mental Status Are patient's symptoms suggestive of a new infection, such as: -Pneumonia -Skin, Soft Tissue -Endocarditis -UTI -Bone, Joint Infection -Implantable Device -Acute Abdominal Infection -Wound Infection -Meningitis -Blood Stream Catheter Infection -Unknown Review of Systems Review Of Systems Constitutional: Reports No symptoms Eyes: Reports Photophobia Ears, Nose, Mouth, Throat: Reports No symptoms Respiratory: Reports No symptoms Cardiac: Reports Chest pain GI: Reports Vomiting : Reports No symptoms Musculoskeletal: Reports No symptoms Skin: Reports No symptoms Neurological: Reports Headache Endocrine: Reports No symptoms Hematologic/Lymphatic: Reports No symptoms All Other Systems: Reviewed and Negative [facility] Medical History Migraines Ulcerative colitis Family History Grandfather/Grandmother Lung abnormality Heart abnormality Thyroid condition Social History (Updated 08/30/22 @ 22:44 by AMRITA MONZON RN) Smoking and tobacco status: Never smoker Surgical History History of section History of tubal ligation Female Reproductive History Menstrual Hx Hysterectomy: No Hx Tubal Ligation: Yes Physical Exam Physical Exam Appearance: Reports No pain distress and Thin Ill-appearing: Mild Pain Distress: None Eyes: Reports AMANDA and EOMI ENT: Reports Ears normal and Nose normal Neck: Supple Respiratory: Reports Airway patent, Breath sounds clear and Breath sounds equal Cardiovascular: Reports RRR, Pulses normal, No rub and No murmur GI/: Reports Soft and Nontender Musculoskeletal: Reports Normal strength and ROM intact Skin: Reports Warm and Normal color Neurological: Reports Sensation intact and Motor intact Psychiatric: Reports Affect appropriate Interpretation EKG Interpretation Time of EKG #1: 19:54 Rate: Normal Rhythm: Sinus Ectopy: None [place]: Right ST Segment: Normal Interpretation: poss left atrial enlargment no acute ischemia Critical Care Note Critical Care Note Total Critical Care Time (mins): 0 Course Course Orders, Labs, Meds: Lab Review 08/30/22 20:05 Troponin I < 0.012 Orders Category Date Time Status PLACE PATIENT OBSERVATION .TO MEDSURG (NON-MONITORED ADMISSION 08/30/22 21:29 Active BED) EKG-(ED ONLY) Stat CARDIO 08/30/22 19:51 Completed ACTIVITY .Up ad [place] CARE 08/30/22 21:29 Active BLOOD GLUCOSE MONITORING (MED/SURG) ACCUCHECK Q6H CARE 08/30/22 21:35 Active INTAKE & OUTPUT Q8HR CARE 08/30/22 21:34 Active VITAL SIGNS Q4HR CARE 08/30/22 21:34 Active NPO [NOTHING BY MOUTH] DIETARY 08/31/22 Breakfast Ordered TROPONIN I Stat LAB 08/30/22 20:05 Completed Acetaminophen [Tylenol] Meds 08/30/22 21:29 Active 650 mg PO Q4H PRN Metoclopramide HCl [Reglan] Meds 08/30/22 19:50 Discontinued 10 mg IVP ONCE STA Metoclopramide HCl [Reglan] Meds 08/30/22 21:29 Active 10 mg IVP Q6H PRN Ondansetron HCl/Pf [Zofran 4 mg/2 ml] Meds 08/30/22 21:29 Active 4 mg IVP Q6H PRN Sodium Chloride 0.9% [Sodium Chloride] 500 ml Meds 08/30/22 21:30 Discontinued IV 100 mls/hr Sumatriptan Succinate [Imitrex] Meds 08/30/22 19:51 Discontinued 50 mg PO ONCE STA CT HEAD W/O CONTRAST Stat RADS 08/30/22 20:21 Completed Medications Generic Name Dose Route Start Last Admin Trade Name Freq PRN Reason Stop Dose Admin Acetaminophen 650 mg 08/30/22 21:29 Acetaminophen 325 Mg Tablet PO Q4H PRN Mild Pain Sodium Chloride 1,000 mls @ 100 mls/hr 08/31/22 03:46 08/31/22 04:01 Sodium Chloride IV 100 mls/hr .Q10H DUTCH Administration Metoclopramide HCl 10 mg 08/30/22 21:29 Metoclopramide Hcl 10 Mg/2 Ml IVP Q6H PRN Nausea / Vomiting Ondansetron HCl 4 mg 08/30/22 21:29 Ondansetron Hcl/Pf 4 Mg/2 Ml Sdv IVP Q6H PRN Nausea / Vomiting Discontinued Medications Generic Name Dose Route Start Last Admin Trade Name Freq PRN Reason Stop Dose Admin Sodium Chloride 500 mls @ 100 mls/hr 08/30/22 21:30 08/31/22 04:02 Sodium Chloride IV Not Given .Q5H DUTCH Metoclopramide HCl 10 mg 08/30/22 19:50 08/30/22 20:05 Metoclopramide Hcl 10 Mg/2 Ml IVP 08/30/22 19:51 10 mg ONCE STA Administration Sumatriptan Succinate 50 mg 08/30/22 19:51 08/30/22 20:05 Sumatriptan Succinate 25 Mg Tablet PO 08/30/22 19:52 50 mg ONCE STA Administration Vital Signs: Temp Pulse Resp BP Pulse Ox 08/30/22 19:42 98.3 F 82 18 118/65 99 37 years old female with past medical history of ulcerative colitis who presented to the ER for headache, vomiting, and chest pain. Patient was in the ER earlier today for similar complaints he was treated with Zofran and IV fluids and was discharged to home. When the patient got home she was not feeling well was having some headache and vomiting so she came back to the emergency room and mention also she is having chest pain retrosternal sharp nonradiating aggravated by the vomiting. Patient also complaining of some sensitivity to light. CT head came back negative she was given Imitrex 50 mg for the migraine headache, troponin came back normal EKG showed normal sinus rhythm at 69 with possible left atrial enlargement and incomplete right about right bundle branch block and ended undermine age of anterior infarct, patient does not have any risk factors, chest pain is atypical likely secondary to the vomiting. Patient will be admitted under observation for intractable nausea and vomiting Case discussed with admitting nurse practitioner Ronald and she accepted the patient to be admitted for observation under her services. Discharge Plan Discharge Patient Disposition: ADMITTED INPATIENT Discharge Problem: Headache, migraine, Nausea & vomiting, Chest pain Did you review [place] [employer] for ALL controlled substances?: Not Applicable ED Provider: YOON SAN Condition: Poor Physician Progress Note: []
--- NOTE | 2022-08-30 20:45 | CT ---
EXAM: CT BRAIN HISTORY: Headache TECHNIQUE: CT brain without intravenous contrast. 5-mm axial sections with Reformations. COMPARISON: None FINDINGS: The brain was unremarkable without evidence of hemorrhage or large vessel distribution recent ische josr infarction. There is no suggestion of acute hydrocephalus or subdural fluid collection. No mass or mass effect. Cranium has no acute finding. Mastoid processes are aerated. The visualized paran beatrice sinuses are clear. IMPRESSION: No acute intracranial process. - - - - - All CT scans are performed using dose optimization techniques as appropriate to the performed exam an d include at least one of the following: Automated exposure control, adjustment of the mA and/or kV according t o size, and the use of iterative reconstruction technique.
[2022-08-30] MEDS ORDERED: ZOFRAN 4 MG/2 ML IVP PRN (21:29)
[2022-08-30] MEDS ORDERED: REGLAN IVP PRN (21:29)
[2022-08-30] MEDS ORDERED: TYLENOL PO PRN (21:29)
[2022-08-30] MEDS: SODIUM CHLORIDE 500 ML IV SCH (22:20)
[2022-08-30 22:39] VITALS: BMI 14.2
[2022-08-31] MEDS ORDERED: SODIUM CHLORIDE 1,000 ML IV SCH (03:46)
[2022-08-31] MEDS: SODIUM CHLORIDE 500 ML IV SCH (04:02)
[2022-08-31 05:26] VITALS: BP 99/53; RESP 16; TEMP 97.5
--- NOTE | 2022-08-31 09:14 | PCM ---
Date of Service Date Seen by Provider: 08/31/22 Time Seen by Provider: 08:30 Admit Day/Time Admission Date: 08/30/22 Reason for Admission Chief Complaint: INTRACTABLE NAUSEA AND VOMITING Hospital Provider Hospital Provider: CHARLES LEW, [facility] [place] Primary Care Physician Primary Care Physician: HANSA CA APRN History of Present Illness History of Present Illness: 37-year-old female presented to the ER with complaints of nausea vomiting and headache. Patient has a history of ulcerative colitis. She was initially seen in the ER and given IV fluids, reglan, and Zofran and discharged home with a prescription for reglan. She came back to the ER after more episodes of vomiting and headache. Patient states she has a history of migraines but has not taken medicine for years. She was given Imitrex in the ER which resolved the headache. Has not had any episodes of vomiting since arriving to the ER last night. Denies any fever, abdominal pain, chills, urinary symptoms, chest pain, or shortness of breath. Case Discussed With Case Discussed With: Patient's case was discussed with the ER Physicians, Dr. Dubon [facility] Medical History Migraines G43.909 - Migraine, unspecified, not intractable, without status migrainosus (ICD-10) Ulcerative colitis K51.90 - Ulcerative colitis, unspecified, without complications (ICD-10) Surgical History History of section Z98.891 - History of uterine scar from previous surgery (ICD-10) History of tubal ligation Z98.51 - Tubal ligation status (ICD-10) Family History Grandfather/Grandmother Lung abnormality Heart abnormality Thyroid condition Social History Smoking and tobacco status: Never smoker Allergies Allergies Allergy/AdvReac Type Severity Reaction Status Date / Time latex AdvReac Intermediate Rash Verified 08/30/22 22:24 hydrocodone bitartrate AdvReac FINGERS Verified 08/30/22 22:24 [From Lortab] NUMB Current Medications Home Medications omeprazole 40 mg capsule,delayed release 40 mg PO QDAY #30 caps 12/13/21 [Rx Confirmed 08/30/22 Last Taken 08/30/22] albuterol sulfate 90 mcg/actuation aerosol inhaler 2 puff inhalation Q6H PRN shortness of breath or wheezing #8.5 grams 01/03/22 [Rx Confirmed 08/30/22 Last Taken Unknown] metoclopramide HCl 10 mg tablet (Reglan) 10 mg PO Q6H PRN nausea and vomiting #20 tabs 08/30/22 [Rx Confirmed 08/30/22 Last Taken 08/30/22] Home Acetaminophen (Acetaminophen 325 Mg Tablet) 650 mg PO Q4H PRN PRN Reason: Mild Pain Sodium Chloride (Sodium Chloride) 1,000 mls @ 100 mls/hr IV .Q10H [facility] Last Admin: 08/31/22 04:01 Dose: 100 mls/hr Metoclopramide HCl (Metoclopramide Hcl 10 Mg/2 Ml) 10 mg IVP Q6H PRN PRN Reason: Nausea / Vomiting Ondansetron HCl (Ondansetron Hcl/Pf 4 Mg/2 Ml Sdv) 4 mg IVP Q6H PRN PRN Reason: Nausea / Vomiting Discontinued Medications Sodium Chloride (Sodium Chloride) 500 mls @ 100 mls/hr IV .Q5H [facility] Last Admin: 08/31/22 04:02 Dose: Not Given Metoclopramide HCl (Metoclopramide Hcl 10 Mg/2 Ml) 10 mg IVP ONCE STA Stop: 08/30/22 19:51 Last Admin: 08/30/22 20:05 Dose: 10 mg Sumatriptan Succinate (Sumatriptan Succinate 25 Mg Tablet) 50 mg PO ONCE STA Stop: 08/30/22 19:52 Last Admin: 08/30/22 20:05 Dose: 50 mg Review of Systems Constitutional: Reports No symptoms Head: Reports Normocephalic and Atraumatic Eyes: Reports No symptoms Ears: Reports No symptoms Nose: Reports No symptoms Mouth: Reports No symptoms Throat: Reports No symptoms Cardiovascular: Reports No symptoms Respiratory: Reports No symptoms Gastrointestinal: Reports Nausea and Vomiting Genitourinary: Reports No Symptoms Musculoskeletal: Reports No symptoms Endocrine: Reports No symptoms Hematology: Reports No symptoms Immunology: Reports No symptoms Neurological: Reports Headache Psychiatric: Reports No symptoms Physical examination Most Recent Vital Signs: Most Recent Vital Signs Temperature 97.5 F L 08/31/22 05:25 Temperature Source Temporal Artery Scan 08/31/22 05:25 Temperature Source Infrared 08/30/22 19:42 Pulse Rate 70 08/31/22 05:25 Respiratory Rate 16 08/31/22 05:25 Blood Pressure 99/53 L 08/31/22 05:25 Blood Pressure Mean 68 08/31/22 05:25 Blood Pressure Right Arm 97/57 08/30/22 22:19 Blood Pressure Location Right Arm 08/31/22 05:25 Blood Pressure Position Supine 08/31/22 05:25 O2 Sat by Pulse Oximetry 99 08/31/22 05:25 Oxygen Delivery Method Room Air 08/31/22 05:25 Height 5 ft 7 in 08/30/22 22:19 Weight 90 lb 14.4 oz 08/30/22 22:19 Telemetry Heart Rate 63 05/18/17 07:00 Appearance: Positive No Apparent Distress, Alert and Oriented x3, Thin and Cachectic Skin: Positive [place], Warm, Good Turgor and Good Color HEENT: Positive Normocephalic and Atraumatic Neck: Positive Supple and Midline Trachea Chest/Lungs: Positive Symmetrical With Equal Breath Sounds, Clear to Auscultation Bilaterally and Good Air Movement all 4 Lung [place] Heart: Positive RRR, Pulses Normal, No S3 Auscultated and No S4 Auscultated GI/: Positive Soft, Nontender, Bowel Sounds Normal, No Distention and No Organomegaly Musculoskeletal: Positive Normal Gait and Station Extremities: Positive Intact Peripheral Pulses, Stable Joints Without Laxity and Good ROM in All Joints Neurological: Positive Sensation Intact, Motor intact, Reflexes Intact, Alert, Oriented and Muscle Strength 5/5 in Upper and Lower Extremities Bilaterally Psychiatric: Positive Oriented x4, Appropriate Mood, Appropriate Affect, Intact Memory, Good Short-Term Recall, Good Long-Term Recall, Normal Judgement and Normal Insight Labs This Visit Labs This Visit: Labs This Visit 08/30/22 20:05 Troponin I < 0.012 Imaging Imagining: EXAM: CT ABDOMEN PELVIS WITHOUT CONTRAST HISTORY: Abdominal pain, history of colitis COMPARISON: 04/03/2020. TECHNIQUE: Serial axial images of the abdomen pelvis were performed from the lung bases through the inferior pelvis without contrast. These were viewed in multiple planes. FINDINGS: Limited evaluation of the abdominal organs demonstrates the liver, spleen and pancreas are unremarkable. The gallbladder is unremarkable. Left extrarenal pelvis. No right or left hydronephrosis. Punctate nonobstructing left renal stone. Retroaortic left renal vein. The adrenal glands are unremarkable. Limited evaluation of the bowel without intravenous or oral contrast. However, the colon and small bowel appear grossly unremarkable. No dilated loops of bowel. The appendix is normal. Trace fluid in the pelvis, likely physiologic. The pelvic structures are unremarkable. IMPRESSION: No acute CT findings in the abdomen or pelvis to explain the patient's presenting symptoms. Please see above description and additional findings. EXAM: CT BRAIN HISTORY: Headache TECHNIQUE: CT brain without intravenous contrast. 5-mm axial sections with Reformations. COMPARISON: None FINDINGS: The brain was unremarkable without evidence of hemorrhage or large vessel distribution recent ischemic infarction. There is no suggestion of acute hydrocephalus or subdural fluid collection. No mass or mass effect. Cranium has no acute finding. Mastoid processes are aerated. The visualized paranasal sinuses are clear. IMPRESSION: No acute intracranial process. Review Statement Review Statement: I have independently reviewed and interpreted the labs/EKGs/imaging that were ordered by the ER provider. I have reviewed all outside records that are available currently in our EMR including imaging/notes/labs from previous visits. Plan Plan: 1. Intractable N/V - NPO - ice chips only, NS@100 mL/hr, zofran and reglan prn for N/V, accuchecks Q6H 2. Headache - resolved, follow-up with PCP to restart migraine regimen 3. Ulcerative Colitis - chronic, stable, continue home medications 4. Anxiety - chronic, continue home medications DVT Prophylaxis: Up ad anastasiya Time Spent: Greater than 80 minutes spent with patient, 50% of the time spent with this patient was devoted to counseling and coordination of care. Advanced Care Plannin minutes spent discussing advance care planning. Disposition: Admit to Med/surg Observation FULL Discussed Plan of Care with Dr. Tomlin. Medications Medication Orders: Medications Ordered Category Date Time Status Acetaminophen [Tylenol] Meds 08/30/22 21:29 Active 650 mg PO Q4H PRN Metoclopramide HCl [Reglan] Meds 08/30/22 21:29 Active 10 mg IVP Q6H PRN Ondansetron HCl/Pf [Zofran 4 mg/2 ml] Meds 08/30/22 21:29 Active 4 mg IVP Q6H PRN Sodium Chloride 0.9% [Sodium Chloride] 1,000 ml Meds 08/31/22 03:46 Active IV 100 mls/hr
--- NOTE | 2022-08-31 09:15 | DCSUM ---
Admission Date Admission Date: 08/30/22 Discharge Date Discharge Date: 08/31/22 Admission Diagnosis Admission Diagnosis: Intractable N/V, Headache Discharge Diagnosis Discharge Diagnosis: Intractable N/V, Headache Hospital Provider Hospital Provider: [place] [facility] [place] Primary Care Physician: HANSA CA APRN Summary of History and Physical Summary of History and Physical: 37-year-old female presented to the ER with complaints of nausea vomiting and headache. Patient has a history of ulcerative colitis. She was initially seen in the ER and given IV fluids, reglan, and Zofran and discharged home with a prescription for reglan. She came back to the ER after more episodes of vomiting and headache. Patient states she has a history of migraines but has not taken medicine for years. She was given Imitrex in the ER which resolved the headache. Has not had any episodes of vomiting since arriving to the ER last night. Denies any fever, abdominal pain, chills, urinary symptoms, chest pain, or shortness of breath. Hospital Course Subjective: No further episodes of nausea or vomiting over night. Attempting to drink sprite at this time. During course of stay patient received normal saline at 100 mL/hr, n.p.o., Zofran and Reglan as needed, and had no other additional episodes of vomiting. Headache is resolved. Patient was written a prescription for Reglan in the ER. Tolerating PO intake. Plan to follow-up with PCP for migraine regimen. Appearance: Pleasant, No Apparent Distress, Alert, Well-appearing and Well- nourished HEENT: MMM and Supple CVS: No Murmur and No Rubs Abdomen: Soft, Non-Tender and No Distention Respiratory: No Dyspnea Extremities: No Edema Vital Signs: Most Recent Vital Signs Temperature 97.5 F L 08/31/22 05:25 Temperature Source Temporal Artery Scan 08/31/22 05:25 Temperature Source Infrared 08/30/22 19:42 Pulse Rate 70 08/31/22 05:25 Respiratory Rate 16 08/31/22 05:25 Blood Pressure 99/53 L 08/31/22 05:25 Blood Pressure Mean 68 08/31/22 05:25 Blood Pressure Right Arm 97/57 08/30/22 22:19 Blood Pressure Location Right Arm 08/31/22 05:25 Blood Pressure Position Supine 08/31/22 05:25 O2 Sat by Pulse Oximetry 99 08/31/22 05:25 Oxygen Delivery Method Room Air 08/31/22 05:25 Height 5 ft 7 in 08/30/22 22:19 Weight 90 lb 14.4 oz 08/30/22 22:19 Telemetry Heart Rate 63 05/18/17 07:00 Lab Results Last 24 Hours: 08/30/22 20:05 Troponin I < 0.012 Discharge Instructions Discharge Planning: Discharge Planning > 40 minutes Follow-up with PCP as scheduled next week. Take reglan prescription as prescribed for nausea/vomiting. Rest and drink plenty of fluids to stay hydrated. Activity as tolerated. Medications Given This Visit: Medications Generic Name Dose Route Start Last Admin Trade Name Freq PRN Reason Stop Dose Admin Acetaminophen 650 mg 08/30/22 21:29 Acetaminophen 325 Mg Tablet PO Q4H PRN Mild Pain Sodium Chloride 1,000 mls @ 100 mls/hr 08/31/22 03:46 08/31/22 04:01 Sodium Chloride IV 100 mls/hr .Q10H DUTCH Administration Metoclopramide HCl 10 mg 08/30/22 21:29 Metoclopramide Hcl 10 Mg/2 Ml IVP Q6H PRN Nausea / Vomiting Ondansetron HCl 4 mg 08/30/22 21:29 Ondansetron Hcl/Pf 4 Mg/2 Ml Sdv IVP Q6H PRN Nausea / Vomiting Medications Given This Visit: Medications at Discharge (Home Meds & RX) omeprazole 40 mg capsule,delayed release 40 mg PO QDAY #30 caps 12/13/21 albuterol sulfate 90 mcg/actuation aerosol inhaler 2 puff inhalation Q6H PRN shortness of breath or wheezing #8.5 grams 01/03/22 metoclopramide HCl 10 mg tablet (Reglan) 10 mg PO Q6H PRN nausea and vomiting #20 tabs 08/30/22 Discharge Plan Discharge Discharge Orders: Discharge Patient (ONCE); Ordered 08/31/22 Ordered By: ENRICO GLASGOW Activity Restrictions/Additional Instructions: YOU HAVE A FOLLOW UP ON August AT 4:15 WITH HANSA CA, SHOULD YOU HAVE ANY QUESTIONS OR NEED TO RESCHEDULE YOU CAN CONTACT THEIR OFFICE AT [phone]. Take reglan prescription as prescribed for nausea/vomiting. Rest and drink plenty of fluids to stay hydrated. Activity as tolerated. Instructions: Acute Headache (GEN), Acute Nausea and Vomiting (GEN) Patient Disposition: HOME SELF-CARE Prescriptions: Continued metoclopramide HCl [Reglan] 10 mg tablet 10 mg PO Q6H PRN (Reason: nausea and vomiting) Qty: 20 0RF omeprazole 40 mg capsule,delayed release(DR/EC) 40 mg PO QDAY Qty: 30 2RF Rx Instructions: take 1 po daily in am 30 min before breakfast albuterol sulfate 90 mcg/actuation HFA aerosol inhaler 2 puff inhalation Q6H PRN (Reason: shortness of breath or wheezing) Qty: 8.5 1RF Did you review [place] DEL[employer] for ALL controlled substances?: No Discussed opioids are addictive and Narcan is available by prescription or from pharmacy.: No Condition: Fair
--- NOTE | 2022-08-31 09:40 | PCM.SS ---
Provider Provider: CHARLES LEW, [facility] Admission Date Admission Date: 08/30/22 Discharge Date Discharge Date: 08/31/22 Primary Care Physician Primary Care Physician: HANSA CA APRN Chief Complaint Reason For Visit: INTRACTABLE NAUSEA AND VOMITING History of Present Illness History of Present Illness: Admitted 08/30/22 21:44 37-year-old female presented to the ER with complaints of nausea vomiting and headache. Patient has a history of ulcerative colitis. She was initially seen in the ER and given IV fluids, reglan, and Zofran and discharged home with a prescription for reglan. She came back to the ER after more episodes of vomiting and headache. Patient states she has a history of migraines but has not taken medicine for years. She was given Imitrex in the ER which resolved the headache. Has not had any episodes of vomiting since arriving to the ER last night. Denies any fever, abdominal pain, chills, urinary symptoms, chest pain, or shortness of breath. ON LICENSE OF [facility] Medical History Migraines G43.909 - Migraine, unspecified, not intractable, without status migrainosus (ICD-10) Ulcerative colitis K51.90 - Ulcerative colitis, unspecified, without complications (ICD-10) Surgical History History of section Z98.891 - History of uterine scar from previous surgery (ICD-10) History of tubal ligation Z98.51 - Tubal ligation status (ICD-10) Family History Grandfather/Grandmother Lung abnormality Heart abnormality Thyroid condition Social History Smoking and tobacco status: Never smoker Medications Mecications: Medications at Discharge (Home Meds & RX) omeprazole 40 mg capsule,delayed release 40 mg PO QDAY #30 caps 12/13/21 albuterol sulfate 90 mcg/actuation aerosol inhaler 2 puff inhalation Q6H PRN shortness of breath or wheezing #8.5 grams 01/03/22 metoclopramide HCl 10 mg tablet (Reglan) 10 mg PO Q6H PRN nausea and vomiting #20 tabs 08/30/22 Allergies Allergies Allergy/AdvReac Type Severity Reaction Status Date / Time latex AdvReac Intermediate Rash Verified 08/30/22 22:24 hydrocodone bitartrate AdvReac FINGERS Verified 08/30/22 22:24 [From Lortab] NUMB Review of Systems Constitutional: Reports No symptoms Head: Reports Normocephalic and Atraumatic Eyes: Reports No symptoms Ears: Reports No symptoms Nose: Reports No symptoms Mouth: Reports No symptoms Throat: Reports No symptoms Cardiovascular: Reports No symptoms Respiratory: Reports No symptoms Gastrointestinal: Reports Nausea and Vomiting Genitourinary: Reports No Symptoms Musculoskeletal: Reports No symptoms Endocrine: Reports No symptoms Hematology: Reports No symptoms Immunology: Reports No symptoms Neurological: Reports No symptoms Psychiatric: Reports No symptoms Physical Examination Appearance: Positive No Apparent Distress, Alert and Oriented x3, Thin and Cachectic Head: Positive Normocephalic Eyes: Positive AMANDA ENT: Positive Nares Normal and Oropharynx Normal Neck: Positive Supple and Non-Tender Heart: Positive RRR and No Murmurs Respiratory: Positive Airway patent, Breath Sounds Clear, Bilaterally, Breath Sounds Equal and Respirations Nonlabored GI/: Positive Soft, Nontender, Bowel sounds normal, No Distention, No masses a nd No Organomegaly Extremities: Positive Pedal Pulses Palpable Bilaterally Neurological: Positive Normal Gait, Recent Memory Intact, Remote Memory Intact, Alert and Oriented Psychiatric: Positive Normal Judgement, Normal Insight, Affect Appropriate and Mood Appropriate Labs This Visit Labs This Visit: Labs This Visit 08/30/22 20:05 Troponin I < 0.012 Review Review Statement: I have independently reviewed and interpreted the labs/EKGs/imaging that were ordered by the ER provider. I have reviewed all outside records that are available currently in our EMR including imaging/notes/labs from previous visits. Plan Reccomendations/Plan: Plan Overnight: 1. Intractable N/V - NPO - ice chips only, NS@100 mL/hr, zofran and reglan prn for N/V, accuchecks Q6H 2. Headache - resolved, follow-up with PCP to restart migraine regimen 3. Ulcerative Colitis - chronic, stable, continue home medications 4. Anxiety - chronic, continue home medications DVT Prophylaxis: Up ad anastasiya Disposition: Admit to Med/surg Observation FULL code This am, patient given sprite and oral intake. Tolerated well without vomiting. Discharge home. Has prescription for reglan PRN for nausea and vomiting from ER. Follow-up with PCP next week as scheduled. Review With Patient Reviewed with Patient and Family: Patient and family have been counseled on condition and care plan and have no immediate questions. I have personally discussed and reviewed the patient's visit/current labs/imaging/decision making with Dr. Esme Tomlin, my supervising attending. Total number of minutes spent with patient 85 min. More than 50% of the time spe nt with this patient was devoted to counseling and coordination of care. Time of Admission:08/30/22 21:44 Time of Discharge: 08/31/22 09:40 Discharge Plan Discharge Discharge Orders: Discharge Patient (ONCE); Ordered 08/31/22 Ordered By: ENRICO GLASGOW Activity Restrictions/Additional Instructions: YOU HAVE A FOLLOW UP ON August AT 4:15 WITH HANSA CA, SHOULD YOU HAVE ANY QUESTIONS OR NEED TO RESCHEDULE YOU CAN CONTACT THEIR OFFICE AT [phone]. Take REGLAN prescription as prescribed for nausea/vomiting. Rest and drink plenty of fluids to stay hydrated. Activity as tolerated. Resume normal activity. Resume regular home diet. Instructions: Acute Headache (GEN), Acute Nausea and Vomiting (GEN) Patient Disposition: HOME SELF-CARE Prescriptions: Continued metoclopramide HCl [Reglan] 10 mg tablet 10 mg PO Q6H PRN (Reason: nausea and vomiting) Qty: 20 0RF omeprazole 40 mg capsule,delayed release(DR/EC) 40 mg PO QDAY Qty: 30 2RF Rx Instructions: take 1 po daily in am 30 min before breakfast albuterol sulfate 90 mcg/actuation HFA aerosol inhaler 2 puff inhalation Q6H PRN (Reason: shortness of breath or wheezing) Qty: 8.5 1RF Did you review [place] FEED RESEARCH TECHNICIAN for ALL controlled substances?: No Discussed opioids are addictive and Narcan is available by prescription or from pharmacy.: No Condition: Fair
== END 2022-08-31 11:21 | disposition home or self-care (01) ==
LOC: MEDSURG B 19:33 → ED 19:33 → MEDSURG B 22:16
PROVIDERS: ADMIT Nurse Practitioner Family; ATTEND Nurse Practitioner Family
DX: H53.71 Glare sensitivity; Z79.899 Other long term (current) drug therapy; Z51.81 Encounter for therapeutic drug level monitoring; R11.2 Nausea with vomiting, unspecified; F41.9 Anxiety disorder, unspecified; Z86.69 Personal history of other diseases of the nervous system and sense organs; K51.90 Ulcerative colitis, unspecified, without complications; R07.9 Chest pain, unspecified; G43.909 Migraine, unspecified, not intractable, without status migrainosus